=== PATIENT | male | born 1975 | race Caucasian/White ===

== ENCOUNTER 2018-11-11 20:13 | Emergency (ER) | payer OTHER ==
[~2018-11-11] VITALS: Ht 180.3 cm; Wt 93.0 kg
[2018-11-11 20:30] VITALS: BP_SYST 135
[2018-11-11] MEDS ORDERED: KETOROLAC TROMETHAMINE 60 MG/2 ML VIAL IM ONE (21:30)
[2018-11-11] MEDS ORDERED: DIPH-TET-PERTUS Vaccine 0.5 ML VIAL (ADACEL) I.M. ONE (21:30)
[2018-11-11] MEDS ORDERED: LIDOCAINE/PRILOCAINE 5 GM CREAM (EMLA) TP ONE (21:30)
[2018-11-11 22:20] VITALS: BP_SYST 130
== END 2018-11-11 22:20 | disposition home or self-care (01) ==
LOC: SED 20:13
DX: S01.01XA Laceration without foreign body of scalp, initial encounter (principal); Z88.1 Allergy status to other antibiotic agents; W54.0XXA Bitten by dog, initial encounter; Y93.89 Activity, other specified; Y92.89 Other specified places as the place of occurrence of the external cause; Y99.8 Other external cause status
CPT/HCPCS: 12001; 90471; 90715; 96372; 99283; J1885

== ENCOUNTER 2019-04-29 19:58 | Emergency (ER) | payer OTHER ==
[~2019-04-29] VITALS: Ht 180.3 cm; Wt 91.6 kg
[2019-04-29 20:19] VITALS: BP_SYST 145
--- NOTE | 2019-04-29 20:21 | NUR ---
Patient to ER bed H1 to gown for evaluation. Side rails up.
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
--- NOTE | 2019-04-29 21:00 | NUR ---
ER at bedside examining patient.
[2019-04-29 22:58] VITALS: BP_SYST 145
--- NOTE | 2019-04-29 22:58 | NUR ---
Patient given written and verbal discharge instructions and verbalizes understanding. ER MD Dr. Morrison discussed with patient the results and treatment provided. Patient in stable condition. ID arm band removed. Rx of ibuprofen given. Patient educated on pain management and to follow up with PMD. Pain Scale 0/10. Opportunity for questions provided and answered. Medication side effect fact sheet provided.
== END 2019-04-29 22:58 | disposition home or self-care (01) ==
LOC: SED 19:58
DX: S93.402A Sprain of unspecified ligament of left ankle, initial encounter (principal); W05.2XXA Fall from non-moving motorized mobility scooter, initial encounter; Y93.I9 Activity, other involving external motion; Y92.410 Unspecified street and highway as the place of occurrence of the external cause; Y99.8 Other external cause status
CPT/HCPCS: 73590-TC; 99283

== ENCOUNTER 2022-02-10 23:31 | Emergency (ER) | payer OTHER ==
[~2022-02-10] VITALS: Ht 180.3 cm; Wt 90.7 kg
[2022-02-10 23:45] VITALS: BP_SYST 132
--- NOTE | 2022-02-11 01:30 | NUR ---
Called to ER with no response. Left without being seen.
== END 2022-02-11 01:30 | disposition left against medical advice (07) ==
LOC: SED 23:31
DX: S61.412A Laceration without foreign body of left hand, initial encounter (principal); W45.8XXA Other foreign body or object entering through skin, initial encounter; Y93.89 Activity, other specified; Y92.89 Other specified places as the place of occurrence of the external cause; Y99.8 Other external cause status; Z53.21 Procedure and treatment not carried out due to patient leaving prior to being seen by health care provider